=== PATIENT | male | born 1975 | race Caucasian/White ===

== ENCOUNTER 2018-06-17 13:58 | Emergency (ER) | payer MEDICARE, SELFPAY ==
[2018-06-17 14:09] VITALS: BP 152/85; PULSE 78; RESP 16; TEMP 37; O2SAT 96
--- NOTE | 2018-06-17 14:42 | W.ED.GENAD ---
Discharge Plan Disposition Patient Disposition: HOME Condition: Stable Discharge Details Chief Complaint: Orthopedic Clinical Impression: Sprain of left little finger Primary Care Provider: None,None ED Provider: Ismael Dunn Home Meds and New Rx's Prescriptions: No Action No Known Home Meds RF: 0 Discharge Instructions Additional Instructions: you can take 1000mg tylenol and 600mg ibuprofen every 6 hours for pain as needed avoid heavy lifting until you are pain free if you still have pain in a week see your primary care provider return to the emergency department for severe worsening pain or fevers Medical Decision Making 43 yo male comes in with pain at the base of his left pinky. States it started yesterday morning after working out the day before doing pull ups, denies any known significant trauma, has full rom of the finger without deformities and has intact sensation and pulses and normal caprillary refill. Given the full rom without deformity or significant trauma do not feel xrays indicated. Has no findings to suggest cellulitis, septic joint or other infectious etiologies. Suspect strain vs contusion. Will d/c home and advised return if worsening and avoid heavy lifting until no pain and f/u with pcp Differential Diagnosis contusion, sprain, strain HPI General Mode of arrival: ambulatory. Date/Time Provider Initiated Documentation: 06/17/18 14:00. Limitations to Documentation: no limitations. Information obtained by: patient. History of Present Illness 43 year old M presents to the emergency department with the chief complaint of left hand pain, described as moderate, with intensity rated at 5. Quality is described as aching, and is localized to the left and upper extremity. Patient reports no radiation. Patient started experiencing this day(s) (1) and it has been constant. No relieving factors improve symptom(s), No exacerbating factors reported . Patient notes no other symptoms.. Patient did receive the following treatments prior to arrival, none Related Data Home Medications Medication Instructions Recorded Confirmed Unknown [No Known Home Meds] 04/03/17 06/17/18 Allergies Allergy/AdvReac Type Severity Reaction Status Date / Time No Known Allergies Allergy Unverified 06/17/18 14:11 General Stated Complaint: Orthopedic SAVANA: 4 Review of Systems Review of Systems All systems reviewed & are unremarkable except as noted in HPI and below Constitutional Denies chills, Denies fever(s) and Denies weakness Cardiovascular Denies chest pain and Denies dyspnea Respiratory Denies dyspnea Gastrointestinal Denies abdominal pain, Denies nausea and Denies vomiting Neurologic Denies weakness Psychiatric Denies depression [facility] Social History Smoking/Tobacco Use Status: Never Exam Const General: no acute distress Orientation: alert HENMT Head: normal to inspection Ears: external ears normal General nose exam: external nose normal Mouth: moist mucous membranes Eyes General: appearance normal, both eyes and all related structures Neck Neck: normal visual inspection Resp Effort & Inspection: normal respiratory effort and able to speak in complete sentences Cardio Rate: regular rate Skin General skin exam: no rashes or lesions noted Neuro General: alert and oriented x3 Extrem General: normal to inspection Psych Mental Status: mental status grossly normal Course Vital Signs Temperature 37 C 06/17/18 14:09 Pulse 78 06/17/18 14:09 Respiratory Rate 16 06/17/18 14:09 Blood Pressure 152/85 H 06/17/18 14:09 Pulse Oximetry 96 06/17/18 14:09 Temperature 37 C 06/17/18 14:09 Temperature Source Skin 06/17/18 14:09 Pulse 78 06/17/18 14:09 Respiratory Rate 16 06/17/18 14:09 Respiratory Effort Non-Labored 06/17/18 14:09 Blood Pressure 152/85 H 06/17/18 14:09 Blood Pressure Position Sitting 06/17/18 14:09 Pulse Oximetry 96 06/17/18 14:09 Oxygen Delivery Method Room Air 06/17/18 14:09 Oxygen Flow Rate 0 06/17/18 14:09 Pain Level 7 06/17/18 14:09
--- NOTE | 2018-06-17 14:47 | ED.GENADUL_ITS ---
Discharge Plan Disposition Patient Disposition: HOME Condition: Stable Discharge Details Chief Complaint: Orthopedic Clinical Impression: Sprain of left little finger Primary Care Provider: None,None ED Provider: Ismael Dunn Home Meds and New Rx's Prescriptions: No Action No Known Home Meds RF: 0 Discharge Instructions Additional Instructions: you can take 1000mg tylenol and 600mg ibuprofen every 6 hours for pain as needed avoid heavy lifting until you are pain free if you still have pain in a week see your primary care provider return to the emergency department for severe worsening pain or fevers Medical Decision Making 43 yo male comes in with pain at the base of his left pinky. States it started yesterday morning after working out the day before doing pull ups, denies any known significant trauma, has full rom of the finger without deformities and has intact sensation and pulses and normal caprillary refill. Given the full rom without deformity or significant trauma do not feel xrays indicated. Has no findings to suggest cellulitis, septic joint or other infectious etiologies. Suspect strain vs contusion. Will d/c home and advised return if worsening and avoid heavy lifting until no pain and f/u with pcp Differential Diagnosis contusion, sprain, strain HPI General Mode of arrival: ambulatory . Date/Time Provider Initiated Documentation: 06/17/18 14:00 . Limitations to Documentation: no limitations . Information obtained by: patient . History of Present Illness 43 year old M presents to the emergency department with the chief complaint of left hand pain, described as moderate, with intensity rated at 5. Quality is described as aching, and is localized to the left and upper extremity. Patient reports no radiation. Patient started experiencing this day(s) (1) and it has been constant. No relieving factors improve symptom(s), No exacerbating factors reported . Patient notes no other symptoms.. Patient did receive the following treatments prior to arrival, none Related Data Home Medications Medication Instructions Recorded Confirmed Unknown [No Known Home Meds] 04/03/17 06/17/18 Allergies Allergy/AdvReac Type Severity Reaction Status Date / Time No Known Allergies Allergy Unverified 06/17/18 14:11 General Stated Complaint: Orthopedic SAVANA: 4 Review of Systems Review of Systems All systems reviewed & are unremarkable except as noted in HPI and below Constitutional Denies chills, Denies fever(s) and Denies weakness Cardiovascular Denies chest pain and Denies dyspnea Respiratory Denies dyspnea Gastrointestinal Denies abdominal pain, Denies nausea and Denies vomiting Neurologic Denies weakness Psychiatric Denies depression [facility] Social History Smoking/Tobacco Use Status: Never Exam Const General: no acute distress Orientation: alert HENMT Head: normal to inspection Ears: external ears normal General nose exam: external nose normal Mouth: moist mucous membranes Eyes General: appearance normal, both eyes and all related structures Neck Neck: normal visual inspection Resp Effort & Inspection: normal respiratory effort and able to speak in complete sentences Cardio Rate: regular rate Skin General skin exam: no rashes or lesions noted Neuro General: alert and oriented x3 Extrem General: normal to inspection Psych Mental Status: mental status grossly normal Course Vital Signs Temperature 37 C 06/17/18 14:09 Pulse 78 06/17/18 14:09 Respiratory Rate 16 06/17/18 14:09 Blood Pressure 152/85 H 06/17/18 14:09 Pulse Oximetry 96 06/17/18 14:09 Temperature 37 C 06/17/18 14:09 Temperature Source Skin 06/17/18 14:09 Pulse 78 06/17/18 14:09 Respiratory Rate 16 06/17/18 14:09 Respiratory Effort Non-Labored 06/17/18 14:09 Blood Pressure 152/85 H 06/17/18 14:09 Blood Pressure Position Sitting 06/17/18 14:09 Pulse Oximetry 96 06/17/18 14:09 Oxygen Delivery Method Room Air 06/17/18 14:09 Oxygen Flow Rate 0 06/17/18 14:09 Pain Level 7 06/17/18 14:09
== END 2018-06-17 14:50 | disposition home or self-care (01) ==
PROVIDERS: Emergency Provider Emergency Medicine
DX: S63.617A Unspecified sprain of left little finger, initial encounter (principal); X50.0XXA Overexertion from strenuous movement or load, initial encounter
CPT/HCPCS: 99282

== ENCOUNTER 2019-01-05 11:33 | Emergency (ER) | payer MEDICARE, MEDICAID, SELFPAY ==
[2019-01-05 11:47] VITALS: BP 153/97; PULSE 66; RESP 16; TEMP 36.6; O2SAT 98
--- NOTE | 2019-01-05 12:22 | ED.GENADUL_ITS ---
Discharge Plan Disposition Patient Disposition: HOME Condition: Stable Discharge Details Chief Complaint: Orthopedic Clinical Impression: Neck pain, High blood pressure Primary Care Provider: None,None ED Provider: Lacie Fitzgerald Home Meds and New Rx's Prescriptions: New prednisone 50 mg tablet 50 mg PO DAILY Qty: 4 RF: 0 hydrochlorothiazide 12.5 mg tablet 12.5 mg PO DAILY Qty: 30 RF: 0 diazepam [Valium] 5 mg tablet 5 mg PO Q8H PRN (Reason: muscle spasm) Qty: 6 RF: 0 lidocaine [Lidoderm] 5 % adhesive patch,medicated 1 patch TP DAILY Qty: 15 RF: 0 Discharge Instructions Instructions: Hydrochlorothiazide (By mouth), Diazepam (By mouth), Prednisone (By mouth), Lidocaine Patch (On the skin), Hypertension (ED), Neck Pain (ED) Additional Instructions: Please return immediately to the emergency department if you develop any new or worsening symptoms or if you become otherwise concerned. It is extremely important that you establish care with a primary care doctor as we discussed. Please do not drink any alcohol on days that you are taking Valium. Do not take Valium with other sedative medications. Do not drive, operate machinery, or make important decisions after taking Valium. Referrals: Daquan Mcarthur, PT [PHYSICAL THERAPIST] - Discharge Data Discharge Date/Time-TO BE ENTERED AT DEPARTURE: 01/05/19 13:09 Medical Decision Making Mike Mcarthur is a 43-year-old man with history of bipolar who presented to the emergency department with 2 weeks of intermittent left neck pain consistent with prior muscle spasms he has had in the past. On exam patient is very well and nontoxic appearing. Neurologic exam is grossly nonfocal. There is tenderness over the left deltoid region that reproduces his pain. Exam/history is not consistent with septic arthritis or other infectious etiology, acute cervical or thoracic cord compression, vascular pathology, intrathoracic etiology such as pulmonary embolism, acute coronary syndrome, pneumothorax, pneumonia, acute aortic etiology, symptoms related to elevated blood pressure. Concern for likely muscle spasm/strain. Plan for prednisone, Valium, Lidoderm patch. Patient also notes his persistent elevated blood pressure. He does not currently have a primary care doctor. Patient placed on care management list to establish care with PCP. Plan for hydrochlorothiazide Rx. I had a lengthy discussion with the patient regarding return to emergency department precautions, home care, importance of outpatient follow-up with PCP as soon as possible. Patient verbalized understanding the plan was amenable. All questions were answered. Patient was discharged home with clear plan for outpatient follow-up Medical Records Medical records reviewed: Yes I reviewed the patient's medical records. HPI General Mode of arrival: ambulatory . Date/Time Provider Initiated Documentation: 01/05/19 11:57 . Limitations to Documentation: no limitations . Information obtained by: patient, RN notes reviewed and old records reviewed . HPI Narrative: Mike Mcarthur is a 43-year-old man with a history of bipolar disorder presenting to the emergency department with neck/upper back pain. Patient reports that 2 weeks ago he woke up and noticed pain in his upper back/lower neck region on the left. Patient reports that pain felt like muscle spasms. He reports that he has had the pain intermittently since that time, worse with flexion of his neck or lateral rotation of his neck. Patient reports that pain feels much better when he lies flat, and is worse with standing with his shoulders slumped. He denies pain in his shoulder. No known trauma. Patient reports that he has had a long history of back spasms that feel very similar to this, but they have usually gone away on their own and not lasted quite as long as this in the past. He denies any other pain, cough, shortness of breath, any change in his symptoms during exertion, nausea/vomiting/diarrhea, numbness, focal weakness, rash. Otherwise feels very well in his usual state of health. No recent illness. Patient does note that he has been checking his blood pressure regularly, and notes that over the past month or so his blood pressure seems to be persistently elevated, with systolic values greater than 135 and diastolic values at approximately 90. Patient reports that he does not currently have a primary care doctor, and has not been diagnosed with hypertension in the past. Related Data Home Medications Medication Instructions Recorded Confirmed diazepam [Valium] 5 mg PO Q8H PRN #6 tab 01/05/19 hydrochlorothiazide 12.5 mg PO DAILY #30 tab 01/05/19 lidocaine [Lidoderm] 1 patch TP DAILY #15 each 01/05/19 prednisone 50 mg PO DAILY #4 tab 01/05/19 Previous Rx's Medication Instructions Recorded diazepam [Valium] 5 mg PO Q8H PRN #6 tab 01/05/19 hydrochlorothiazide 12.5 mg PO DAILY #30 tab 01/05/19 lidocaine [Lidoderm] 1 patch TP DAILY #15 each 01/05/19 prednisone 50 mg PO DAILY #4 tab 01/05/19 Allergies Allergy/AdvReac Type Severity Reaction Status Date / Time No Known Allergies Allergy Unverified 01/05/19 11:50 General Stated Complaint: Orthopedic SAVANA: 4 Review of Systems Review of Systems Constitutional: denies fevers Eyes: denies eye pain ENT: denies facial pain, dental pain, sore throat Cardiovascular: denies chest pain, edema Respiratory: denies SOB, cough GI: denies abdominal pain, vomiting, diarrhea : denies flank pain MSK: denies back pain, arthralgias, myalgias,, reports neck pain Skin: denies rash Neuro: denies headaches, numbness, weakness PFSH Social History Smoking/Tobacco Use Status: Never Drug use: Rarely Do you feel safe in your relationship?: Yes Exam Narrative Exam Narrative: Constitutional: well and [id number], pleasant, conversing normally HENT: head atraumatic/normocephalic/normal inspection, mucous membranes moist Eyes: conjunctiva normal, sclera normal, pupils 3mm b/l Neck: no stridor, normal ROM, trachea midline, there is tenderness to palpation over the left deltoid muscle, no edema, no overlying skin changes, no skin wound, able to range neck normally, though this exacerbates his pain. No cervical vertebral tenderness to palpation. Chest: normal inspection Resp: normal work of breathing, LCTAB Cardio: normal rate, normal rhythm, no murmur appreciated Back: normal inspection, no rash. No vertebral tenderness to palpation. Skin: warm, dry, normal color, no rash Neuro: alert, not altered, grossly non-focal, normal tone. Normal motor exam bi lateral arms. Ext: Normal exam of the left shoulder with full range of motion, no tenderness over the clavicle, scapula, anterior posterior shoulder joint. Radial pulses intact and symmetric. Psych: normal mood, normal affect, normal behavior Course Vital Signs Temperature 36.6 C 01/05/19 11:47 Pulse 66 01/05/19 11:47 Respiratory Rate 16 01/05/19 11:47 Blood Pressure 153/97 H 01/05/19 11:47 Pulse Oximetry 98 01/05/19 11:47 Temperature 36.6 C 01/05/19 11:47 Temperature Source Skin 01/05/19 11:47 Pulse 66 01/05/19 11:47 Respiratory Rate 16 01/05/19 11:47 Respiratory Effort Non-Labored 01/05/19 11:47 Blood Pressure 153/97 H 01/05/19 11:47 Blood Pressure Position Sitting 01/05/19 11:47 Pulse Oximetry 98 01/05/19 11:47 Oxygen Delivery Method Room Air 01/05/19 11:47 Oxygen Flow Rate 0 01/05/19 11:47 Pain Level 5 01/05/19 11:47
[2019-01-05] MEDS: Lidocaine 5% Patch 1 PATCH (12:27)
[2019-01-05 13:07] VITALS: BP 150/87; PULSE 70; RESP 17; TEMP 36.6; O2SAT 98
--- NOTE | 2019-01-05 17:53 | NUR.NOTE ---
Nursing Note: Faxed to [facility], referral for follow up. Dr. Chapman programmable logic controller assembler for telephone call. Sanna Tiwari.
== END 2019-01-05 13:09 | disposition home or self-care (01) ==
PROVIDERS: Emergency Provider Student in an Organized Health Care Education/Training Program
DX: M54.2 Cervicalgia (principal); I10 Essential (primary) hypertension
CPT/HCPCS: 99283

== ENCOUNTER 2020-09-25 14:15 | Emergency (ER) | payer MEDICARE, MEDICAID, SELFPAY ==
[2020-09-25 14:21] VITALS: BP 189/130; PULSE 111; RESP 18; TEMP 36.4; O2SAT 98
[2020-09-25] MEDS: Normal Saline 1,000 ML 1000 ML IV (14:30)
--- NOTE | 2020-09-25 14:30 | DI.US_ITS ---
EXAM: US SCROTUM CLINICAL HISTORY: testicular swelling TECHNIQUE: Ultrasound of the testes performed using grayscale, color, and Doppler imaging. COMPARISON: US SCROTUM US from 04/03/2017 FINDINGS: RIGHT HEMISCROTUM: The right testicle exhibits normal size and echo architecture with no evidence of intratesticular mas s. Vascular flow was demonstrated within the right testicle, including arterial waveforms. The epididymis appears unremarkable. There are no epididymal head cysts. There is a small right hydrocele. LEFT HEMISCROTUM: The left testicle exhibits normal size and echo architecture with no evidence of intratesticular mass . Vascular flow is demonstrated within the left testicle, including arterial waveforms. There is a small 3 millimeter epididymal head cyst. In addition, there is a 2 millimeter hyperechoic focus exhibiting shadowing at the periphery of the t esticle-scrotal interface, probably consistent with a calcified benign density such as scrotal teresa. . IMPRESSION: 1. No evidence of ominous intra testicular mass nor testicular torsion. 2. Small right hydrocele. No left hydrocele. Small left epididymal head cyst. 3. 2-3 millimeter calcification at junction of testicle and scrotal wall left side. This is a benign finding such as a scrotal teresa. Report called by myself to ER physician following completion of the study 09/25/2020 DATA REPOSITORY:
[2020-09-25 14:56] LABS: Abs Immature Grans 0.03 10^3/uL (0.0-0.06); Absolute Basophil Count 0.06 10^3/uL (0.0-0.2); Absolute Eosinophil Count 0.33 10^3/uL (0.0-0.7); Absolute Lymphocyte Count 1.41 10^3/uL (1.2-3.4); Absolute Monocyte Count 0.38 10^3/uL (0.1-0.8); Absolute Neutrophil Count 3.41 10^3/uL (1.2-6.7); Basophils % 1.1; Eosinophils % 5.9; HCT 46.5 % (40.0-50.0); HGB 15.6 g/dL (13.5-17.5); Immature Grans % 0.5; Lymphocytes % 25.1; MCH 29.4 pg (27.0-33.0); MCHC 33.5 % (32.0-36.0); MCV 87.6 fL (80-95); MPV 8.3 fL (8.0-11.0); Monocytes % 6.8; Neutrophils % 60.6; Nucleated RBC 0 %; Platelet Count 218 10^3/uL (130-400); RBC 5.31 10^6/uL (4.36-5.78); RDW-SD 38.6 fL; WBC 5.62 10^3/uL (4.4-10.8)
[2020-09-25] MEDS: LORazepam 2 MG/ML VIAL 1 MG IVP (15:05)
[2020-09-25 15:06] LABS: ALT 58 U/L (16-63); AST 33 U/L (15-37); Albumin 4.3 g/dL (3.4-5.0); Alkaline Phosphatase 66 U/L (46-116); Anion Gap 10.3 mmol/L (3-11); BUN 20 mg/dL (7-18); Bilirubin, Total 0.5 mg/dL (0.2-1.0); CO2 28.7 mmol/L (21.0-32.0); CREATININE 1.2 mg/dL (0.70-1.30); Calcium 9.3 mg/dL (8.5-10.1); Chloride 101 mmol/L (98-107); Glucose 113 mg/dL (74-106); Potassium 3.7 mmol/L (3.5-5.1); Sodium 140 mmol/L (136-145); Total Protein 8.2 g/dL (6.4-8.2)
[2020-09-25 15:11] LABS: Bilirubin Negative (Negative); Blood Negative (Negative); Clarity Clear (Clear); Glucose Negative (Negative); Ketones Negative (Negative); Leukocyte Esterase Negative (Negative); Nitrite Negative (Negative); Specific Gravity >= 1.030 (1.005-1.025); Urobilinogen 0.2 EU/dL (Up TO 0.2); pH 5.5 (5-8)
[2020-09-25 15:18] LABS: Bacteria Negative HPF (Negative); C & S Indicated? No; Casts Negative LPF (Negative); Crystals Negative HPF (Negative); Epithelial Cells Rare HPF (Negative); Mucus Negative (Negative); RBC 0-2 HPF (0-2); WBC 0-2 HPF (0-5)
--- NOTE | 2020-09-25 15:18 | W.ED.GENAD ---
Discharge Plan Disposition Patient Disposition: HOME Condition: Stable Discharge Details Clinical Impression: Swelling of left testicle, Alcohol withdrawal Primary Care Provider: None,None ED Provider: Lacie Fitzgerald Home Meds and New Rx's Prescriptions: New diazepam [Valium] 5 mg tablet 5 mg PO Q8H PRNQty: 6 RF: 0 Continued prednisone 50 mg tablet 50 mg PO DAILY Qty: 4 RF: 0 hydrochlorothiazide 12.5 mg tablet 12.5 mg PO DAILY Qty: 30 RF: 0 lidocaine [Lidoderm] 5 % adhesive patch,medicated 1 patch TP DAILY Qty: 15 RF: 0 Discontinued diazepam [Valium] 5 mg tablet 5 mg PO Q8H PRN (Reason: muscle spasm) Qty: 6 RF: 0 Discharge Instructions Instructions: Diazepam (By mouth), Alcohol Withdrawal (ED) Additional Instructions: Please return immediately to the emergency department if you develop any new or worsening symptoms, if your condition does not improve as expected, or if you become otherwise concerned. It is extremely important that you call soon as possible to make an appointment to be seen in follow-up for this visit by your primary care doctor and a urologist as we discussed. Referrals: Martin Collins MD [ [facility]] - Discharge Data Discharge Date/Time-TO BE ENTERED AT DEPARTURE: 09/25/20 17:03 Medical Decision Making Mike Mcarthur is a 45-year-old man with history of alcoholism who presents emergency department for several months of left-sided testicular swelling and aching without acute change, patient also stopped drinking alcohol cold turkey 3 days ago they are not currently feeling significant withdrawal symptoms. On exam patient is anxious, heart rate approximately 100, no tremor, no agitation, left testicle is enlarged compared to right, mildly tender to palpation, no scrotal skin changes or lesions, normal right testicle. Patient does not tolerate hernia exam secondary to discomfort. Concern for hernia versus orchitis versus mass versus other, mild alcohol withdrawal, possible lyte derangement. exam/hx at this time not c/w incarcerated hernia, acute emergent intra-abdominal process, sepsis, testicular torsion, emergent etoh withdrawal. Plan for IVF hydration, scrotal US, screening labs, 1mg ativan. Pt reports feeling less anxious after ativan. He states that he recognizes his etoh use is unhealthy and plans to continue to abstain. Labs non-diagnostic. US scrotum normal. No acute emergent process identified at this time, Pt remains concerned about size difference of left testicle, plan to f/u outpt with urology. Pt states that he feels well and would like to be discharged. Plan for short course valium to aid with alcohol cessation. I had a lengthy discussion with Pt re: safe valium use, not using valium within 8 hours of alcohol should he continue to drink. Pt verbalizes understanding and is amenable to the plan. I had a lengthy discussion with Patient regarding return to emergency department precautions, home care, and importance of outpatient follow-up. Pt verbalizes understanding of the plan and is amenable. Patient discharged to home with clear plan for outpatient follow-up. All questions were answered. Disposition decision was made weighing the risks and benefits of hospitalization versus outpatient treatment, the risk for further decompensation, and the patient's wishes. Medical Records Medical records reviewed: Yes I reviewed the patient's medical records. Imaging Data Radiologic Study: Attestation: I personally reviewed and interpreted this imaging study as follows: Radiologist's impression: EXAM: US SCROTUM CLINICAL HISTORY: testicular swelling TECHNIQUE: Ultrasound of the testes performed using grayscale, color, and Doppler imaging. COMPARISON: US SCROTUM US from 04/03/2017 FINDINGS: RIGHT HEMISCROTUM: The right testicle exhibits normal size and echo architecture with no evidence of intratesticular mass. Vascular flow was demonstrated within the right testicle, including arterial waveforms. The epididymis appears unremarkable. There are no epididymal head cysts. There is a small right hydrocele. LEFT HEMISCROTUM: The left testicle exhibits normal size and echo architecture with no evidence of intratesticular mass. Vascular flow is demonstrated within the left testicle, including arterial waveforms. There is a small 3 millimeter epididymal head cyst. In addition, there is a 2 millimeter hyperechoic focus exhibiting shadowing at the periphery of the testicle-scrotal interface, probably consistent with a calcified benign density such as scrotal teresa.. IMPRESSION: 1. No evidence of ominous intra testicular mass nor testicular torsion. 2. Small right hydrocele. No left hydrocele. Small left epididymal head cyst. 3. 2-3 millimeter calcification at junction of testicle and scrotal wall left side. This is a benign finding such as a scrotal teresa. Lab Data Lab results reviewed: Yes I reviewed the patient's lab results. Labs: Laboratory Tests Range/Units 09/25/20 09/25/20 09/25/20 14:30 14:30 15:00 WBC (4.4-10.8) 10^3/uL 5.62 RBC (4.36-5.78) 10^6/uL 5.31 Hgb (13.5-17.5) g/dL 15.6 Hct (40.0-50.0) % 46.5 MCV (80-95) fL 87.6 MCH (27.0-33.0) pg 29.4 MCHC (32.0-36.0) % 33.5 RDW (11.8-14.1) % 12.0 Plt Count (130-400) 10^3/uL 218 MPV (8.0-11.0) fL 8.3 Immature Gran % 0.5 Neutrophils % 60.6 Lymphocytes % 25.1 Monocytes % 6.8 Eosinophils % 5.9 Basophils % 1.1 Nucleated RBC % % 0 Absolute Neutrophils (1.2-6.7) 10^3/uL 3.41 Absolute Lymphocytes (1.2-3.4) 10^3/uL 1.41 Absolute Monocytes (0.1-0.8) 10^3/uL 0.38 Absolute Eosinophils (0.0-0.7) 10^3/uL 0.33 Absolute Basophils (0.0-0.2) 10^3/uL 0.06 Sodium (136-145) mmol/L 140 Potassium (3.5-5.1) mmol/L 3.7 Chloride (98-107) mmol/L 101 Carbon Dioxide (21.0-32.0) mmol/L 28.7 Anion Gap (3-11) mmol/L 10.3 BUN (7-18) mg/dL 20 H Creatinine (0.70-1.30) mg/dL 1.2 Estimated GFR/1.73 m2 (mL/min/1.73m2) >= 60.00 Glucose (74-106) mg/dL 113 H Calcium (8.5-10.1) mg/dL 9.3 Total Bilirubin (0.2-1.0) mg/dL 0.5 AST (15-37) U/L 33 ALT (16-63) U/L 58 Alkaline Phosphatase (46-116) U/L 66 Total Protein (6.4-8.2) g/dL 8.2 Albumin (3.4-5.0) g/dL 4.3 Urine Color (Yellow) Yellow Urine Clarity (Clear) Clear Urine pH (5-8) 5.5 Ur Specific [place] (1.005-1.025) >= 1.030 H Urine Protein (Negative) mg/dL 30 H Urine Ketones (Negative) mg/dL Negative Urine Blood (Negative) Negative Urine Nitrite (Negative) Negative Urine Bilirubin (Negative) Negative Urine Urobilinogen (Up TO 0.2) EU/dL 0.2 Ur Leukocyte Esterase (Negative) Negative Urine RBC (0-2) HPF 0-2 Urine WBC (0-5) HPF 0-2 Ur Epithelial Cells (Negative) HPF Rare Urine Crystals (Negative) HPF Negative Urine Bacteria (Negative) HPF Negative Urine Casts (Negative) LPF Negative Urine Mucus (Negative) Negative Ur Culture Indicated? No Urine Glucose (Negative) mg/dL Negative Chlamydia DNA Probe (Negative) Chlamydia/GC DNA Source N.gonorrhoeae DNA Probe (Negative) Range/Units 09/25/20 16:00 WBC (4.4-10.8) 10^3/uL RBC (4.36-5.78) 10^6/uL Hgb (13.5-17.5) g/dL Hct (40.0-50.0) % MCV (80-95) fL MCH (27.0-33.0) pg MCHC (32.0-36.0) % RDW (11.8-14.1) % Plt Count (130-400) 10^3/uL MPV (8.0-11.0) fL Immature Gran % Neutrophils % Lymphocytes % Monocytes % Eosinophils % Basophils % Nucleated RBC % % Absolute Neutrophils (1.2-6.7) 10^3/uL Absolute Lymphocytes (1.2-3.4) 10^3/uL Absolute Monocytes (0.1-0.8) 10^3/uL Absolute Eosinophils (0.0-0.7) 10^3/uL Absolute Basophils (0.0-0.2) 10^3/uL Sodium (136-145) mmol/L Potassium (3.5-5.1) mmol/L Chloride (98-107) mmol/L Carbon Dioxide (21.0-32.0) mmol/L Anion Gap (3-11) mmol/L BUN (7-18) mg/dL Creatinine (0.70-1.30) mg/dL Estimated GFR/1.73 m2 (mL/min/1.73m2) Glucose (74-106) mg/dL Calcium (8.5-10.1) mg/dL Total Bilirubin (0.2-1.0) mg/dL AST (15-37) U/L ALT (16-63) U/L Alkaline Phosphatase (46-116) U/L Total Protein (6.4-8.2) g/dL Albumin (3.4-5.0) g/dL Urine Color (Yellow) Urine Clarity (Clear) Urine pH (5-8) Ur Specific [place] (1.005-1.025) Urine Protein (Negative) mg/dL Urine Ketones (Negative) mg/dL Urine Blood (Negative) Urine Nitrite (Negative) Urine Bilirubin (Negative) Urine Urobilinogen (Up TO 0.2) EU/dL Ur Leukocyte Esterase (Negative) Urine RBC (0-2) HPF Urine WBC (0-5) HPF Ur Epithelial Cells (Negative) HPF Urine Crystals (Negative) HPF Urine Bacteria (Negative) HPF Urine Casts (Negative) LPF Urine Mucus (Negative) Ur Culture Indicated? Urine Glucose (Negative) mg/dL Chlamydia DNA Probe (Negative) Negative Chlamydia/GC DNA Source Not Applicable N.gonorrhoeae DNA Probe (Negative) Negative HPI General Mode of arrival: ambulatory. Date/Time Provider Initiated Documentation: 09/25/20 14:26. Limitations to Documentation: no limitations. Information obtained by: patient, RN notes reviewed and old records reviewed. HPI Narrative: Mike Mcarthur is a 45-year-old man with history of alcoholism presenting to the emergency department with testicular swelling. Patient reports that he has history of left-sided varicocele and hydrocele after trauma when patient was in middle school. He initially underwent abdominal surgery which resolved varicocele and then developed subsequent hydrocele. Patient had scrotal surgery around 2004 for hydrocele which was successful. Patient reports that over the past few months he has noticed swelling and intermittent aching of his left testicle. He reports that pain has been mild. He denies any inguinal lymphadenopathy, penile discharge, or genital skin lesion. Patient also reports that he typically drinks half pint of vodka or so per day. Patient reports that he has been doing this for several years. He reports that he has stopped drinking alcohol cold turkey several times, once approximately 1 year ago for 5 weeks and and again 1 to 2 months ago for 1 week. Patient reports that he has never had significant withdrawal symptoms and has never used medication to help him through withdrawal. Patient reports that he stopped drinking cold turkey 3 days ago, and has not had any noticeable alcohol withdrawal symptoms. He does report that he feels extremely anxious about his testicular swelling and is concerned that this could be cancer. He denies fevers, shortness of breath, cough, vomiting, diarrhea, numbness, weakness, any other pain. Related Data Home Medications Medication Instructions Recorded Confirmed hydrochlorothiazide 12.5 mg PO DAILY #30 tab 01/05/19 lidocaine [Lidoderm] 1 patch TP DAILY #15 each 01/05/19 prednisone 50 mg PO DAILY #4 tab 01/05/19 diazepam [Valium] 5 mg PO Q8H PRN #6 tab 09/25/20 Previous Rx's Medication Instructions Recorded hydrochlorothiazide 12.5 mg PO DAILY #30 tab 01/05/19 lidocaine [Lidoderm] 1 patch TP DAILY #15 each 01/05/19 prednisone 50 mg PO DAILY #4 tab 01/05/19 diazepam [Valium] 5 mg PO Q8H PRN #6 tab 09/25/20 Allergies Allergy/AdvReac Type Severity Reaction Status Date / Time No Known Allergies Allergy Unverified 09/25/20 14:23 General Stated Complaint: Male Reproductive Problem SAVANA: 3 Review of Systems Narrative: Constitutional: denies fevers Eyes: denies eye pain ENT: denies ear pain, dental pain, sore throat Cardiovascular: denies chest pain Respiratory: denies SOB, cough GI: denies abdominal pain, vomiting, diarrhea : denies flank pain, dysuria, penile discharge, inguinal lymphadenopathy, genital skin lesions, reports left-sided testicular swelling MSK: denies back pain, neck pain, arthralgias, myalgias Skin: denies rash Neuro: denies headaches, numbness, weakness COUNTS INCLUDE 234 BEDS AT THE [facility] Social History Smoking/Tobacco Use Status: Never Smoking risk assessment performed?: Yes Substance use type: does not use Do you feel safe at home: Yes Do you feel safe in your relationship?: Yes Exam Narrative Exam Narrative: Constitutional: well and [id number], pleasant, conversing normally HENT: head atraumatic/normocephalic/normal inspection, mucous membranes moist Eyes: conjunctiva normal, sclera normal, pupils 3mm b/l Neck: no stridor, normal ROM, trachea midline Resp: normal work of breathing, speaking in full sentences Cardio: normal rate, normal rhythm GI: abdomen soft, non-tender, non-distended : Left testicle somewhat enlarged compared to the right, mild tenderness to palpation, normal examination of the right testicle without edema or tenderness, no mass, no apparent scrotal edema, no genital skin lesion, normal examination of the penis, no inguinal lymphadenopathy Skin: warm, dry, normal color, no rash Neuro: alert, not altered, grossly non-focal, normal tone, no tremor Ext: no edema Psych: normal mood, normal affect, normal behavior Course Vital Signs Vital signs: Vital Signs Temperature 36.4 C L 09/25/20 14:21 Pulse 111 H 09/25/20 14:21 Respiratory Rate 18 09/25/20 14:21 Blood Pressure 189/130 H 09/25/20 14:21 Pulse Oximetry 98 09/25/20 14:21 Temperature 36.4 C L 09/25/20 14:21 Temperature Source Skin 09/25/20 14:21 Pulse 111 H 09/25/20 14:21 Respiratory Rate 18 09/25/20 14:21 Respiratory Effort Non-Labored 09/25/20 14:25 Blood Pressure 189/130 H 09/25/20 14:21 Blood Pressure Position Sitting 09/25/20 14:21 Pulse Oximetry 98 09/25/20 14:21 Oxygen Delivery Method Room Air 09/25/20 14:21 Oxygen Flow Rate 0 09/25/20 14:21 Pain Level 1 09/25/20 14:21 Lab/Test Results Lab/Test Results: Laboratory Tests Range/Units 09/25/20 09/25/20 09/25/20 14:30 14:30 15:00 WBC (4.4-10.8) 10^3/uL 5.62 RBC (4.36-5.78) 10^6/uL 5.31 Hgb (13.5-17.5) g/dL 15.6 Hct (40.0-50.0) % 46.5 MCV (80-95) fL 87.6 MCH (27.0-33.0) pg 29.4 MCHC (32.0-36.0) % 33.5 RDW (11.8-14.1) % 12.0 Plt Count (130-400) 10^3/uL 218 MPV (8.0-11.0) fL 8.3 Immature Gran % 0.5 Neutrophils % 60.6 Lymphocytes % 25.1 Monocytes % 6.8 Eosinophils % 5.9 Basophils % 1.1 Nucleated RBC % % 0 Absolute Neutrophils (1.2-6.7) 10^3/uL 3.41 Absolute Lymphocytes (1.2-3.4) 10^3/uL 1.41 Absolute Monocytes (0.1-0.8) 10^3/uL 0.38 Absolute Eosinophils (0.0-0.7) 10^3/uL 0.33 Absolute Basophils (0.0-0.2) 10^3/uL 0.06 Sodium (136-145) mmol/L 140 Potassium (3.5-5.1) mmol/L 3.7 Chloride (98-107) mmol/L 101 Carbon Dioxide (21.0-32.0) mmol/L 28.7 Anion Gap (3-11) mmol/L 10.3 BUN (7-18) mg/dL 20 H Creatinine (0.70-1.30) mg/dL 1.2 Estimated GFR/1.73 m2 (mL/min/1.73m2) >= 60.00 Glucose (74-106) mg/dL 113 H Calcium (8.5-10.1) mg/dL 9.3 Total Bilirubin (0.2-1.0) mg/dL 0.5 AST (15-37) U/L 33 ALT (16-63) U/L 58 Alkaline Phosphatase (46-116) U/L 66 Total Protein (6.4-8.2) g/dL 8.2 Albumin (3.4-5.0) g/dL 4.3 Urine Color (Yellow) Yellow Urine Clarity (Clear) Clear Urine pH (5-8) 5.5 Ur Specific [place] (1.005-1.025) >= 1.030 H Urine Protein (Negative) mg/dL 30 H Urine Ketones (Negative) mg/dL Negative Urine Blood (Negative) Negative Urine Nitrite (Negative) Negative Urine Bilirubin (Negative) Negative Urine Urobilinogen (Up TO 0.2) EU/dL 0.2 Ur Leukocyte Esterase (Negative) Negative Urine Glucose (Negative) mg/dL Negative
[2020-09-25 16:54] VITALS: BP 161/105; PULSE 77; RESP 16; TEMP 36.6; O2SAT 97
[2020-09-25 17:12] VITALS: BP 161/105; PULSE 77; RESP 16; TEMP 36.6; O2SAT 97
[2020-09-26 15:20] LABS: Chlamydia Result Negative (Negative); GC Result Negative (Negative)
--- NOTE | 2020-10-03 19:20 | NUR.NOTE ---
Per Quin referral not received. Referral faxed 10/03/20Nursing Note:
== END 2020-09-25 17:03 | disposition home or self-care (01) ==
PROVIDERS: Emergency Provider Student in an Organized Health Care Education/Training Program
DX: N50.89 Other specified disorders of the male genital organs (principal); N50.3 Cyst of epididymis; F10.239 Alcohol dependence with withdrawal, unspecified
CPT/HCPCS: 36415; 80053; 87491; 87591; 96361; 96374; 99284; 76870; 81003; 81015; 85025; J2060

== ENCOUNTER → 2020-11-01 12:52 | Outpatient (BNVA) | payer MEDICARE, MEDICAID, SELFPAY | PROVIDERS: PCP Nurse Practitioner Family; Visit Provider Nurse Practitioner Gerontology | DX: N50.3 Cyst of epididymis (principal) | CPT/HCPCS: 99215 ==

== ENCOUNTER 2022-05-17 20:04 | Emergency (ER) | payer MEDICARE, MEDICAID, SELFPAY ==
[2022-05-17] VITALS (79 sets, daily range): BP systolic 153–210; BP diastolic 99–112; PULSE 72–100; RESP 12–24; TEMP 37.6; O2SAT 97
--- NOTE | 2022-05-17 20:00 | RT.EKG_ITS ---
APPROVED REPORT Exam: Resting ECG Reason for Exam: high blood pressure Patient Location: E HR:88 bpm ECG Measurements Heart Rate 88 AXIS W[place] 138 P 60 QRSd 98 QRS 53 QT 372 T 9 QTc 450 Conclusion Sinus rhythm...normal P axis, V-rate 60- 99 Consider left ventricular hypertrophy...(S V1+R V5/V6) >3.50mV Sinus. Normal axis. LVH. No STEMI. I have reviewed and interpreted ECG and agree with software generated interpretation.
--- NOTE | 2022-05-17 20:31 | W.ED.GENAD ---
Discharge Plan Disposition Patient Disposition: Home Condition: Improving Discharge Details Clinical Impression: Alcohol withdrawal, Elevated blood pressure reading Primary Care Provider: Britt Dorsey ED Provider: May Ladd Home Meds and New Rx's Prescriptions: No Action No Known Home Meds Discharge Instructions Instructions: Alcohol Withdrawal (ED), Hypertension (ED) Additional Instructions: I also discussed, I believe your elevated blood pressure is more situational than chronic issue. As you had previously noted, your blood pressure does come down during times when you are not drinking alcohol and I do encourage that you continue to abstain from further alcohol intake. Please hold off on checking your blood pressure until some of your withdrawal symptoms have improved. However, if you develop symptoms such as headache, chest pain, shortness of breath please seek care urgently once again. He did appear slightly dehydrated, please encourage hydration. The oil recovery operator will call you tomorrow and remain in touch over the next 10 days. Please consider there further opportunities such as groups or continued personal interactions you help along your road recovery. Please follow-up with your primary care provider next week for reevaluation. Please return with any new or worsening symptoms Referrals: Britt Dorsey [Primary Care Provider] - Discharge Data Discharge Date/Time-TO BE ENTERED AT DEPARTURE: 05/17/22 23:03 Medical Decision Making Patient is a pleasant 46-year-old male presenting today with chief complaint of elevated blood pressure and alcohol withdrawal. Patient reports that he has a long history of alcohol abuse and decided 3 days ago that he wanted to quit cold turkey. Patient has never had DTs, has successfully quit cold-turkey historically. Longest time being sober was one month. He states that he is feeling shaky, very anxious. He denies any headache, chest pain, confusion, GI upset. He states that he also checks his blood pressure routinely and strictness this evening and noted to be elevated. States that he has continued to elevate since then. On exam, patient appears very anxious and slightly flushed. He is hypertensive and tachycardic at 100. Lungs are clear, normal cardiac exam. He was reporting the right ear feeling slightly full, he does have some clear fluid behind the tympanic membrane and some slight retraction of the TM. It primarily consistent with clogged eustachian tube. Neuro examination tact. Abdomen is benign. He has 2+ distal pulses in all extremities. While his blood pressure is notably elevated, I believe this is likely situational associated with the alcohol withdrawal. He has not indicating any evidence of endorgan damage with his elevated blood pressure. He is slightly shaky and anxious, will give Ativan and continue to monitor, will obtain baseline blood work. EKG was obtained and reviewed by Dr. Frost. Patient is in a normal sinus rhythm with no acute ischemic changes. Labs reviewed. No leukocytosis, stable H&H. Does appear slightly dehydrated with elevated BUN as well as elevated specific gravity of the urine. Creatinine is within normal limits and his GFR. No transaminitis. Discussed these findings with the patient. He did have some blood in the urine. Encouraged that he follow-up with his primary care regarding this trace blood. I presume that the ketones in blood is associated with his dehydrated state as well as stress associated with the alcohol withdrawal. Patient was evaluated by the oil recovery operator. Interested in speaking with them daily. Would like to hold off on other meetings or inpatient treatment at this time. He reports exercise is very beneficial for him in the past and plans to walk and work out. He will seek out care with his PCP, f/u next week. I advised that his BP is associated with the ETOH withdrawal and anxiety, signifcantly decreased since being here with SBP 148. He feels much improved after Ativan, feels safe to go home. As he had Ativan, will hold off having him drive. He will sleep until this has worn off, although he does appear clinically sober. Strict return precautions discussed. He will f/u with recovery and PCP. He feels safe to go home once sober and would like to do so. All of his questions and concerns were addressed, he is in agreement with this plan. Sign Out No HPI General Date/Time Provider Initiated Documentation: 05/17/22 20:07. Limitations to Documentation: no limitations. Information obtained by: patient, RN notes reviewed and old records reviewed. History of Present Illness 46 year old M presents to the emergency department with the chief complaint of anxiety, shakey, elevated BP, described as similar to prior episodes, with intensity rated at 1 (patient denies any pain). Patient started experiencing this day(s) (3) and it has been constant. No relieving factors improve symptom(s), Other factors that worsen symptoms (stopped ETOH 3 days ago) . Patient notes denies confusion, chest pain, cough, fever/chills, headaches, loss of appetite, malaise, nausea/vomiting, rash, seizure (no previous hx of seizure during ETOH cessation), shortness of breath and syncope. Patient did receive the following treatments prior to arrival, none Related Data Home Medications Medication Instructions Recorded Confirmed Unknown [No Known Home Meds] 11/01/20 11/01/20 Allergies Allergy/AdvReac Type Severity Reaction Status Date / Time No Known Allergies Allergy Unverified 09/25/20 14:23 General Stated Complaint: ETOHWithdr SAVANA: 3 Review of Systems Constitutional Constitutional: Reports as per HPI, Denies chills, Denies fever(s), Denies headache(s), Denies lethargy and Denies poor appetite Eyes Eyes: Denies change in vision ENT Ears, Nose, Mouth, and Throat: Denies dizziness and Denies headache(s) Cardiovascular Cardiovascular: Reports as per HPI and Denies dyspnea Respiratory Respiratory: Reports as per HPI, Denies chest congestion, Denies cough and Denies dyspnea Gastrointestinal Gastrointestinal: Reports as per HPI, Denies abdominal pain, Denies diarrhea, Denies nausea and Denies vomiting Genitourinary Genitourinary: Denies system reviewed and no additional complaints, except as documented (denies change in urinary habits) Musculoskeletal Musculoskeletal: Reports as per HPI and Denies back pain Integumentary/Breasts Skin/Breast: Reports as per HPI and Denies rash Neurologic Neurologic: Reports as per HPI, Denies dizziness and Denies headache(s) Psychiatric Psychiatric: Denies abnormal sleep pattern, Reports anxiety, Denies change in appetite, Reports panic attacks, Denies paranoia, Denies homicidal ideation and Denies suicidal ideation PFSH All Active Problems (Updated 05/17/22 @ 22:43 by SUZANNE Delcid) Elevated blood pressure reading (Acute) Epididymal cyst (Acute) Swelling of left testicle (Acute) Alcohol withdrawal (Acute) Social History Smoking/Tobacco Use Status: Never Smoking risk assessment performed?: Yes Substance use type: does not use Do you feel safe at home: Yes Do you feel safe in your relationship?: Yes Exam Const General: cooperative, healthy appearing, comfortable, no acute distress, well developed and anxious Nutritional Appearance: well nourished and overweight Orientation: alert, awake and oriented x3 [facility] Head: normal to inspection Ears: hearing grossly normal bilaterally, TM normal on the left and TM abnormal with fluid behind the TM on the right (clear) and retracted on the right Mouth: moist mucous membranes Eyes General: appearance normal, both eyes and all related structures Chest Chest: normal inspection of the chest, normal palpation of entire chest wall and no crepitus Resp Effort & Inspection: normal respiratory effort, able to speak in complete sentences and no respiratory distress Auscultation: clear to auscultation bilaterally, no rales, no rhonchi and no wheezes Cardio Rate: regular rate Rhythm: regular rhythm Heart Sounds: S1 normal and S2 normal GI Inspection: normal to inspection, no edema and non-distended Palpation: soft, no hepatosplenomegaly, not firm, no guarding, not rigid and nontender Auscultation: normal bowel sounds Back/Spine/Pelvis Back: no CVA tenderness Thoracic/Lumbar Spine: thoracic and lumbar spine normal to inspection Skin General skin exam: no rashes or lesions noted Trauma: no lacerations or abrasions Neuro General: patient alert, patient awake and patient oriented x3 Cognition: normal cognition Speech: speech normal Gait: normal gait Motor: muscle tone normal throughout Extrem General: normal to inspection, capillary refill normal (2+ distal pulses in all extremities), no pedal edema, no calf tenderness and normal gait Psych Appearance: grossly normal and well kempt Mental Status: mental status grossly normal Speech and Movement: restless Mood: anxious mood Affect: anxious affect Attitude: cooperative Thought Process: normal Thought Content: normal Insight: fair Judgment: fair Course Vital Signs Vital signs: Vital Signs Temperature 37.6 C H 05/17/22 20:08 Pulse 100 H 05/17/22 20:08 Respiratory Rate 24 05/17/22 20:08 Blood Pressure 210/112 H 05/17/22 20:08 Temperature 37.6 C H 05/17/22 20:08 Pulse 100 H 05/17/22 20:08 Respiratory Rate 24 05/17/22 20:08 Respiratory Effort 05/17/22 20:14 Respiratory Pattern Normal 05/17/22 20:14 Blood Pressure 210/112 H 05/17/22 20:08 Blood Pressure Position Supine 05/17/22 20:08 Oxygen Delivery Method Room Air 05/17/22 20:08 Oxygen Flow Rate 0 05/17/22 20:08 Pain Level 0 05/17/22 20:08 PAWSS Have you Been Recently Intoxicated or Drunk Within the Last 30 days?: Yes Have you Ever Experienced Previous Episodes of Alcohol Withdrawal?: Yes Have you ever Experienced Withdrawal Seizures?: No Have you ever Experienced Delirium Tremens(DT)s?: No Have you ever undergone Alcohol Rehabilitation Treatment (i.e, inpt ot outpatient treatment programs)?: Yes Have you ever Experienced Blackouts?: No Have you ever Combined Alcohol with other Downers within the last 90 days?: No Have you ever Combined Alcohol with any other Substance of Abuse during the last 90 days?: No Positive Blood Alcohol level on Presentation? [PCS.BAL]: No Evidence of Increased Autonomic Activity (i.e. HR>120, tremor, sweating, agitation, nausea)?: No Result: 3
[2022-05-17] MEDS: LORazepam 2 MG/ML VIAL IVP (20:35)
[2022-05-17 20:38] LABS: Abs Immature Grans 0.01 10^3/uL (0.0-0.06); Absolute Basophil Count 0.05 10^3/uL (0.0-0.2); Absolute Eosinophil Count 0.38 10^3/uL (0.0-0.7); Absolute Lymphocyte Count 2.79 10^3/uL (1.2-3.4); Absolute Monocyte Count 0.67 10^3/uL (0.1-0.8); Basophils % 0.8; Eosinophils % 5.8; HCT 43.9 % (40.0-50.0); HGB 14.8 g/dL (13.5-17.5); Immature Grans % 0.2; Lymphocytes % 42.3; MCH 29.2 pg (27.0-33.0); MCHC 33.7 % (32.0-36.0); MCV 87 fL (80-95); MPV 8.2 fL (8.0-11.0); Monocytes % 10.2; Neutrophils % 40.7; Platelet Count 200 10^3/uL (130-400); RBC 5.07 10^6/uL (4.36-5.78); RDW 11.9 % (11.8-14.1); RDW-SD 37.5 fL
[2022-05-17 20:55] LABS: ALT 56 U/L (16-63); AST 33 U/L (15-37); Albumin 4.6 g/dL (3.4-5.0); Alkaline Phosphatase 69 U/L (46-116); Anion Gap 12.2 mmol/L (3-11); BUN 30 mg/dL (7-18); Bilirubin, Total 0.5 mg/dL (0.2-1.0); CO2 24.8 mmol/L (21.0-32.0); CREATININE 1.2 mg/dL (0.70-1.30); Calcium 8.9 mg/dL (8.5-10.1); Chloride 100 mmol/L (98-107); Estimated GFR 75.06 (mL/min/1.73m2); Glucose 104 mg/dL (74-106); Magnesium 2.1 mg/dL (1.8-2.4); Potassium 3.4 mmol/L (3.5-5.1); Sodium 137 mmol/L (136-145); Total Protein 8.1 g/dL (6.4-8.2)
[2022-05-17 22:02] LABS: Bilirubin Negative (Negative); Blood Trace-intact (Negative); Clarity Clear (Clear); Glucose Negative (Negative); Ketones 15 mg/dL (Negative); Leukocyte Esterase Negative (Negative); Nitrite Negative (Negative); Specific Gravity >= 1.030 (1.005-1.025); Urobilinogen 0.2 EU/dL (Up TO 0.2)
[2022-05-17 22:14] LABS: Bacteria Rare HPF (Negative); C & S Indicated? No; Casts Negative LPF (Negative); Crystals Negative HPF (Negative); Epithelial Cells Rare HPF (Negative); Mucus Negative (Negative); RBC Negative HPF (0-2); WBC Negative HPF (0-5)
--- NOTE | 2022-05-17 23:00 | NUR.NOTE ---
Nursing Note:Pt remaining in ED until midnight after having ativan given earlier. At this time pt gait is steady and no signs of distress. Will reassess in an hour.
--- NOTE | 2022-05-17 23:59 | NUR.NOTE ---
Nursing Note: pt lying in bed eyes closed respirations even and unlabored at18. No distress noted at this time. Will continue to let pt sleep at this time. Discussed plan with SUZANNE Olvera, she agreed.
--- NOTE | 2022-05-18 01:02 | NUR.NOTE ---
Nursing Note:0030 - Pt awake, alert and oriented. Pt gait steady, no distress noted. Pt states he is ready to go home. SUZANNE Olvera agrees pt ok to go home. Pt ambulated out of ED with steady gait.
== END 2022-05-17 23:03 | disposition home or self-care (01) ==
PROVIDERS: Emergency Provider Physician Assistant; PCP Nurse Practitioner Family
DX: F10.239 Alcohol dependence with withdrawal, unspecified (principal); I10 Essential (primary) hypertension; R00.0 Tachycardia, unspecified; R79.89 Other specified abnormal findings of blood chemistry; E66.3 Overweight; Y90.9 Presence of alcohol in blood, level not specified
CPT/HCPCS: 80053; 93005; 96374; 99284; 81003; 81015; 83735; 85025; 93010; J2060